=== PATIENT | female | born 1940 | race Caucasian/White ===

== ENCOUNTER → 2016-08-06 | Outpatient (CLI) | payer MEDICARE, OTHER ==
--- NOTE | 2016-08-06 11:36 | RAD ---
Examination: Ultrasound abdomen complete History: History of abdominal pain. Comparison: None available Findings: The pancreas is not well visualized due to bowel gas. The aorta, IVC are not well visualized due to bowel gas. Mild echogenicity identified within the gallbladder likely sludge. The common bile duct measures 3.9 mm in transverse dimension. The liver measures 15.7 cm . 3.8 cystic structure identified in the left lobe of the liver probably a cyst. The right kidney measures 9.6 x 4.5 x 4.7 cm. The left kidney measures 9.6 x 5.7 x 6.0 cm. There is thinning of the right renal cortex. The spleen measures 7.3 cm in length. Impression: 1. Minimal echogenicity identified within the gallbladder probably sludge. 2. Mild hepatic steatosis. 3. Thinning of the right renal cortex , correlate for medical renal disease. 4. 3.8 cm cyst identified in the left lobe of the liver.
== END | disposition home or self-care (01) ==
LOC: US 09:43
PROVIDERS: ATTEND Internal Medicine Hematology & Oncology
DX: K76.0 Fatty (change of) liver, not elsewhere classified (principal); C90.01 Multiple myeloma in remission; N28.89 Other specified disorders of kidney and ureter; K76.89 Other specified diseases of liver
CPT/HCPCS: 76700

== ENCOUNTER → 2017-10-02 | Outpatient (CLI) | payer MEDICARE, OTHER ==
--- NOTE | 2017-10-02 16:05 | RAD ---
Bilateral lower extremity venous duplex study 10/02/2017 1:32 PM Clinical History: Bilateral lower extremity edema Comparison: None Technique: Using a combination of real time ultrasound imaging and color-flow and pulse Doppler imaging techniques along with graded compression and augmentation, duplex evaluation of the deep venous system of the both lower extremities was performed. Multiple images were obtained. Findings: There is no sonographic evidence of deep venous thrombosis involving the visualized deep venous structures of either lower extremity. Impression: No evidence of deep venous thrombosis Electronically signed by: Carlos Milligan MD (10/02/2017 4:02 PM) [id number]
== END | disposition home or self-care (01) ==
LOC: US 13:13
PROVIDERS: ATTEND Internal Medicine Hematology & Oncology
DX: R22.43 Localized swelling, mass and lump, lower limb, bilateral (principal)
CPT/HCPCS: 93970